=== PATIENT | male | born 1955 | race African-American/Black ===

== ENCOUNTER 2016-07-05 17:47 | Inpatient (IN) | payer MEDICAID ==
[~2016-07-05] VITALS: Ht 157.5 cm; Wt 55.3 kg
[2016-07-05 18:47] LABS: HEMATOCRIT 38.1 % (42.0-54.0); HEMOGLOBIN 12.8 g/dL (13.5-17.5); MCH 31.8 pg (26.0-34.0); MCHC 33.6 g/dL (31.0-37.0); MCV 94.5 fL (80.0-100.0); MEAN PLATELET VOLUME 9.6 fL (7.4-10.4); PLATELET COUNT 272 10x3/uL (130-400); RBC 4.03 10x6/uL (4.20-6.10); WBC 28.3 10x3/uL (4.8-10.8)
[2016-07-05 18:48] LABS: APPEARANCE CLEAR (CLEAR); BILIRUBIN NEGATIVE (NEGATIVE); COLOR YELLOW (YELLOW); GLUCOSE NEGATIVE (NEGATIVE); KETONE NEGATIVE (NEGATIVE); LEUKOCYTE ESTERASE 2+ (NEGATIVE); NITRITE NEGATIVE (NEGATIVE); PROTEIN TRACE mg/dL (NEGATIVE); SPECIFIC GRAVITY 1.015 (1.005-1.020); UROBILINOGEN NORMAL (NORMAL)
[2016-07-05 18:51] LABS: WHITE CELLS - URINE >50 /hpf (0-5)
[2016-07-05 18:54] LABS: BACTERIA MODERATE /hpf (NONE SEEN); RED CELLS - URINE OCC /hpf (0-5)
[2016-07-05 18:56] LABS: EOSINOPHILS 4 % (0-7); LYMPHOCYTES 9 % (15-50); MONOCYTES 2 % (2-11); NEUTROPHILS 85 % (40-80); PLATELET ESTIMATE NORMAL
[2016-07-05 19:04] LABS: BILIRUBIN - TOTAL 0.16 mg/dL (0.2-1.3); CARBON DIOXIDE 25.1 mmol/L (21.0-32.0)
[2016-07-05 19:28] LABS: CREATININE - SERUM 1.5 mg/dL (0.6-1.3)
[2016-07-05 19:29] LABS: ANION GAP 15.8 mmol/L (8-16); POTASSIUM - SERUM 4.9 mmol/L (3.5-5.1)
[2016-07-05 19:49] LABS: ALBUMIN 3.4 g/dL (3.4-5.0); CALCIUM 8.8 mg/dL (8.5-10.1); PROTEIN - SERUM 7.8 g/dL (6.4-8.2)
[2016-07-05 20:09] LABS: CREATINE KINASE 107 UL (21-232); PHENYTOIN (DILANTIN) 15.4 ug/mL (10.0-20.0); PRO BNP 416 pg/mL (0-125); VALPROIC ACID (DEPAKOTE) 101.4 ug/mL (50.0-100.0)
[2016-07-05 20:19] LABS: TROPONIN-I < 0.017 ng/mL (0.000-0.060)
--- NOTE | 2016-07-05 21:54 | NUR ---
RECEIVED PATIENT FROM THE ER WITH FAMILY AT BEDSIDE AND NO VISIBLE SIGNS OF DISTRESS. BED IN LOWEST POSITION, CALL LIGHT WITHIN REACH, AND BED ALARM ON.
[2016-07-05] MEDS ORDERED: DILANTIN100 MG PO (21:55)
[2016-07-05] MEDS ORDERED: DEPAKOTE500 MG PO (22:41)
[2016-07-05] MEDS ORDERED: DIOVAN160 MG PO (22:42)
[2016-07-05] MEDS ORDERED: ZOCOR20 MG PO (22:43)
[2016-07-06 02:29] VITALS: BP 100/58; Ht 157.5 cm; Wt 55.3 kg
[2016-07-06 04:00] VITALS: BP 132/77
[2016-07-06 09:01] VITALS: BP 121/66
[2016-07-06 11:42] LABS: BASOPHILS 0 % (0-2); EOSINOPHILS 0 % (0-7); HEMATOCRIT 32.6 % (42.0-54.0); HEMOGLOBIN 10.9 g/dL (13.5-17.5); IMMATURE GRANULOCYTES 0.6 % (0-5); LYMPHOCYTES 6.1 % (15-50); MCH 31.2 pg (26.0-34.0); MCHC 33.4 g/dL (31.0-37.0); MCV 93.4 fL (80.0-100.0); MEAN PLATELET VOLUME 9.4 fL (7.4-10.4); MONOCYTES 11.9 % (2-11); NEUTROPHILS 81.4 % (40-80); PLATELET COUNT 224 10x3/uL (130-400); RBC 3.49 10x6/uL (4.20-6.10); RDW 14.3 % (11.5-14.5); WBC 32.3 10x3/uL (4.8-10.8)
[2016-07-06 12:00] VITALS: BP 116/65
[2016-07-06 12:04] LABS: ANION GAP 14.2 mmol/L (8-16); BILIRUBIN - TOTAL 0.4 mg/dL (0.2-1.3); CALCIUM 8.6 mg/dL (8.5-10.1); CARBON DIOXIDE 24.2 mmol/L (21.0-32.0); CREATININE - SERUM 1.2 mg/dL (0.6-1.3); POTASSIUM - SERUM 4.4 mmol/L (3.5-5.1)
[2016-07-06 12:06] LABS: ALBUMIN 2.3 g/dL (3.4-5.0)
[2016-07-06 17:56] VITALS: BP 120/70
[2016-07-06 19:00] VITALS: BP 137/75
--- NOTE | 2016-07-06 19:07 | NUR ---
FAMILY/FRIEND IN ROOM, STATED PATIENT JUST HAD A SEIZURE, SHE STATED "IT WAS A PRETTY BAD ONE. HE TRIED TO GET OUT OF THE BED BUT I KEPT HIM IN THE BED AND SAFE." PATIENT IS WAKING UP, RESPONDING TO QUESTIONS WITH "HUH" AND "UH HUH". TOLD PATIENT'S FAMILY/FRIEND THAT I WILL CHECK BACK AND WHEN HE IS AWAKE ENOUGH ADMINISTER HIS SEIZURE MEDS.
--- NOTE | 2016-07-06 19:38 | NUR ---
PATIENT IS AWAKE AND ALERT. ANSWERING QUESTIONS WITH WORDS (WNL FOR PATIENT). ADMINISTERED SEIZURE MEDS. BED IN LOWEST POSITION, CALL LIGHT IN REACH. BED RAILS UP X'S 2. BED ALARM ON. BED RAILS PADDED.
[2016-07-07 04:00] VITALS: BP 146/79
[2016-07-07 06:35] LABS: BASOPHILS 0 % (0-2); EOSINOPHILS 0.2 % (0-7); HEMATOCRIT 34.5 % (42.0-54.0); HEMOGLOBIN 11.6 g/dL (13.5-17.5); IMMATURE GRANULOCYTES 0.3 % (0-5); LYMPHOCYTES 6.4 % (15-50); MCH 31.4 pg (26.0-34.0); MCHC 33.6 g/dL (31.0-37.0); MCV 93.5 fL (80.0-100.0); MEAN PLATELET VOLUME 10.3 fL (7.4-10.4); MONOCYTES 9.6 % (2-11); NEUTROPHILS 83.5 % (40-80); PLATELET COUNT 203 10x3/uL (130-400); RBC 3.69 10x6/uL (4.20-6.10); RDW 14.2 % (11.5-14.5); WBC 20.6 10x3/uL (4.8-10.8)
--- NOTE | 2016-07-07 06:42 | NUR ---
RESTING QUIETLY RESPIRATIONS WITH EASE AND UNLABORED.
[2016-07-07 06:49] LABS: ALBUMIN 2.3 g/dL (3.4-5.0); ANION GAP 14.8 mmol/L (8-16); BILIRUBIN - TOTAL 0.19 mg/dL (0.2-1.3); CALCIUM 8.5 mg/dL (8.5-10.1); CARBON DIOXIDE 23.7 mmol/L (21.0-32.0); CREATININE - SERUM 1.1 mg/dL (0.6-1.3); POTASSIUM - SERUM 4.5 mmol/L (3.5-5.1); PROTEIN - SERUM 6.1 g/dL (6.4-8.2)
[2016-07-07 08:44] VITALS: BP 132/76; BP 139/64
[2016-07-07 12:57] VITALS: BP 106/69
--- NOTE | 2016-07-07 16:06 | NUR ---
Patient Name: YOLY REEDER Admission Status: ER Accout number: [id number] Admission Date: 07-05-2016 : 1955 Admission Diagnosis:FEVER, UNSPECIFIED Attending: AMANDA Current LOS: 2 Anticipated DC Date: 07-11-2016 Planned Disposition: Home Primary Insurance: MEDICAID [place] Discharge Planning Comments: CM MET WITH PATIENT AND BROTHER (MACY) REGARDING D/C NEEDS AND PLANS. BROTHER STATED PATIENT LIVES WITH HIM AND HE WILL DRIVE HIM HOME AT DISCHARGE. PATIENT GOES TO FIRST STEP. PATIENT HAS A WHEELCHAIR, WALKER, SHOWER CHAIR, AND BS COMMODE AT HOME. PATIENTS PCP IS DR. DORMAN AND USES [facility]. PATIENTS BROTHER HELPS WITH MEDICATION MANAGEMENT. BROTHER STATED HOME HEALTH IS NOT NEEDED AND HAS NO OTHER NEEDS FOR DISCHARGE. CM WILL CONTINUE TO FOLLOW PATIENT WITH D/C NEEDS AND PLANS. PCP DR. DORMAN [facility]- [phone] MACY ARGUETA) [phone] Gate Shear Operator: Lisa Cotter Is the patient Alert and Oriented? Yes 0 * How many steps to enter\exit or inside your home? 0 0 * PCP DR. DORMAN 0 * Pharmacy [facility] 0 * Preadmission Environment Home with Family 0 * ADLs Independent 0 * Equipment Bedside Commode Shower Chair Walker Wheelchair 0 * List name and contact numbers for known caregivers / representatives who currently or will assist patient after discharge: MACY ARGUETA) [phone] 0 * Community resources currently utilized None 0 * Additional services required to return to the preadmission environment? Yes 0 * Can the patient safely return to the preadmission environment? Yes 0 * Has this patient been hospitalized within the prior 30 days at any hospital? No 0 Grand Total: 0
[2016-07-07 17:00] VITALS: BP 110/53
[2016-07-07 20:00] VITALS: BP 115/38; BP 167/83
[2016-07-08] VITALS (7 sets, daily range): BP systolic 116–154; BP diastolic 56–77
--- NOTE | 2016-07-08 | NUR ---
1944)REC'D IN BED FAMILY AT BEDSIDE.STATES FEELS MUCH BETTER TODAY SMILING. WILL CONTINUE TO MONITOR FOR ANY CHGES. AND FOLLOW CURRENT PLAN OF CARE
--- NOTE | 2016-07-08 04:00 | NUR ---
PATIENT SLEEPING WITH NO DISTRESS NOTED. AGREE WITH TIER LIFT TRUCK OPERATOR ASSESSMENT.
[2016-07-08 06:20] LABS: BASOPHILS 0.1 % (0-2); EOSINOPHILS 0.6 % (0-7); HEMOGLOBIN 10.9 g/dL (13.5-17.5); IMMATURE GRANULOCYTES 0.2 % (0-5); MCH 30.7 pg (26.0-34.0); MCHC 34.1 g/dL (31.0-37.0); MCV 90.1 fL (80.0-100.0); MEAN PLATELET VOLUME 10.7 fL (7.4-10.4); MONOCYTES 14.8 % (2-11); NEUTROPHILS 75.3 % (40-80); PLATELET COUNT 187 10x3/uL (130-400); RBC 3.55 10x6/uL (4.20-6.10); RDW 14.2 % (11.5-14.5); WBC 11.6 10x3/uL (4.8-10.8)
[2016-07-08 06:23] LABS: ALBUMIN 2.2 g/dL (3.4-5.0); ALKALINE PHOSPHATASE 111 U/L (46-116); BILIRUBIN - TOTAL 0.19 mg/dL (0.2-1.3); CALC OSMOLALITY 280 mosm/kg (275-300); CARBON DIOXIDE 22.8 mmol/L (21.0-32.0); CHLORIDE - SERUM 107 mmol/L (98-107); GLUCOSE 109 mg/dL (74-106); PROTEIN - SERUM 5.9 g/dL (6.4-8.2); SODIUM 140 mmol/L (136-145); UREA NITROGEN 16 mg/dL (7-18); eGFR NON AFRICAN AMERICAN 80 mL/min (90-120)
[2016-07-08 06:26] LABS: ALT (SGPT) 48 U/L (10-68)
--- NOTE | 2016-07-08 07:45 | NUR ---
FAMILY AT BEDSIDE, DENIES NEEDS, CALL LIGHT IN REACH, ASSESSMENT COMPLETE, BED LOWEST POSITION, WILL CONTINUE TO MOMINOR
--- NOTE | 2016-07-08 12:30 | NUR ---
PT CONFUSED AT TIMES. PT HERE FOR UROSEPSIS FOR THIS VISIT. IV TO RIGHT HAND PATENT AND INTACT. PT DENIES NEEDS AT THIS TIME. SRX2 BED AT LOWEST SETTING CALL LIGHT WITHIN REACH WILL CONTINUE TO MONITOR
--- NOTE | 2016-07-09 02:16 | NUR ---
REC'D PATIENT LYING IN BED. NO DISTRESS NOTED. DENIED PAIN AT THIS TIME. INSTRUCTED TO CALL IF NEEDED ANYTHING. CAREGIVER AT BEDSIDE. BED LOW, LOCKED CALL LIGHT IN REACH.
--- NOTE | 2016-07-09 03:37 | NUR ---
PATIENT RESTING IN BED AND DENIES NEEDS AT THIS TIME. NO VISIBLE SIGNS OF DISTRESS. BED IN LOWEST POSITION AND CALL LIGHT WITHIN REACH. ENCOURAGED THE PATIENT TO CALL IF HE HAS NEEDS.
[2016-07-09 03:55] VITALS: BP 143/72
[2016-07-09 07:22] LABS: BASOPHILS 0.2 % (0-2); EOSINOPHILS 1.4 % (0-7); HEMATOCRIT 31.7 % (42.0-54.0); HEMOGLOBIN 10.7 g/dL (13.5-17.5); IMMATURE GRANULOCYTES 0.4 % (0-5); LYMPHOCYTES 14.6 % (15-50); MCH 30.6 pg (26.0-34.0); MCHC 33.8 g/dL (31.0-37.0); MCV 90.6 fL (80.0-100.0); MEAN PLATELET VOLUME 9.6 fL (7.4-10.4); MONOCYTES 21.2 % (2-11); NEUTROPHILS 62.2 % (40-80); PLATELET COUNT 215 10x3/uL (130-400); RDW 14.3 % (11.5-14.5); WBC 11.1 10x3/uL (4.8-10.8)
--- NOTE | 2016-07-09 07:50 | NUR ---
PATIENT ALERT IN BED. NO SIGNS OF DISTRESS NOTED. FAMILY AT BEDSIDE. SIDE RAILS UP X2. BED IN LOW POSITION. CALL LIGHT IN REACH.
[2016-07-09 07:56] LABS: ALBUMIN 2.1 g/dL (3.4-5.0); BILIRUBIN - TOTAL 0.16 mg/dL (0.2-1.3); CALCIUM 8.4 mg/dL (8.5-10.1); CARBON DIOXIDE 25.8 mmol/L (21.0-32.0); CREATININE - SERUM 1.1 mg/dL (0.6-1.3); POTASSIUM - SERUM 3.8 mmol/L (3.5-5.1); PROTEIN - SERUM 6.5 g/dL (6.4-8.2)
--- NOTE | 2016-07-09 08:25 | NUR ---
SITTING UP IN BED, DENIES NEEDS, STARIGHT CATH THIS AM TO EMPTY BLADDER PER DR AREVALO ORDER, BED LOWEST POSITION, CALL LIGHT IN REACH, WILL CONTINUE TO MONITOR
[2016-07-09 08:53] VITALS: BP 124/62
[2016-07-09 11:04] VITALS: BP 123/64
--- NOTE | 2016-07-09 17:00 | NUR ---
CALLED DR WALTERS ABOUT C&S, INFORMED HIM PT IS ONLY R TO [facility]IN, DR WALTERS STATED HE'D CHANGE
--- NOTE | 2016-07-09 19:40 | NUR ---
ASSISTED PT FROM CHAIR BACK TO BED X 2 ASSIST, ANNABELLA WELL, ASSESSMENT COMPLETED, NO DISTRESS NOTED, SCD'S PLACE, BED ALARM ON, BED LOW, SR'S UP X2, CL IN REACH, DENIES NEEDS, WILL MONITOR
[2016-07-09 20:00] VITALS: BP 138/73
--- NOTE | 2016-07-09 21:01 | NUR ---
MEDS GIVEN PER MAR, ANNABELLA WELL, DENIES NEEDS, FALL PRECAUTIONS IN PLACE, CL IN REACH
--- NOTE | 2016-07-09 23:18 | NUR ---
RESTING WITH EYES CLOSED, RESP WITH EASE, NO DISTRESS NOTED, SR'S UP ,CL IN REACH, WILL CONTINUE TO MONITOR
[2016-07-10] VITALS: BP 130/70
--- NOTE | 2016-07-10 01:10 | NUR ---
RESTING WITH EYES CLOSED, RESP WITH EASE, NO DISTRESS NOTED, SR'S UP, ALARM ON, CL IN REACH
[2016-07-10 04:00] VITALS: BP 128/68
[2016-07-10 06:07] LABS: BASOPHILS 0.2 % (0-2); EOSINOPHILS 1.5 % (0-7); HEMATOCRIT 29.6 % (42.0-54.0); IMMATURE GRANULOCYTES 0.5 % (0-5); LYMPHOCYTES 17.4 % (15-50); MCH 30.5 pg (26.0-34.0); MCHC 33.8 g/dL (31.0-37.0); MCV 90.2 fL (80.0-100.0); MEAN PLATELET VOLUME 9.6 fL (7.4-10.4); MONOCYTES 19.8 % (2-11); NEUTROPHILS 60.6 % (40-80); PLATELET COUNT 220 10x3/uL (130-400); RBC 3.28 10x6/uL (4.20-6.10); RDW 14.3 % (11.5-14.5); WBC 12.9 10x3/uL (4.8-10.8)
[2016-07-10 06:26] LABS: ANION GAP 12.2 mmol/L (8-16); BILIRUBIN - TOTAL 0.13 mg/dL (0.2-1.3); CALCIUM 8.1 mg/dL (8.5-10.1); CARBON DIOXIDE 24.6 mmol/L (21.0-32.0); CREATININE - SERUM 1.1 mg/dL (0.6-1.3); POTASSIUM - SERUM 3.8 mmol/L (3.5-5.1); PROTEIN - SERUM 6.3 g/dL (6.4-8.2)
[2016-07-10 09:21] VITALS: BP 125/56
[2016-07-10 12:12] VITALS: BP 138/54
[2016-07-10 16:44] VITALS: BP 132/58
--- NOTE | 2016-07-10 17:59 | NUR ---
DENIES NEEDS, WANTS UP TO CHAIR, BEDLOWEST POSITION , CALL LIGHT IN REACH, WILL CONTINUE TO MONITOR
[2016-07-10 19:00] VITALS: BP 151/67
--- NOTE | 2016-07-10 19:25 | NUR ---
PT SITTING UP IN CHAIR, ASSESSMENT COMPLETED, NO DISTRESS NOTED, DENIES PAIN OR NEEDS, CG AT SIDE, CL IN REACH, WILL MONITOR
--- NOTE | 2016-07-10 20:29 | NUR ---
IV INFILTRATED, DC'D WITH CATH INTACT 20G IV RESITED IN L WRIST X 1 ATTEMPT, MEDS GIVEN PER MAR, ANNABELLA WELL, DENIES FURTHER NEEDS, CG AT BEDSIDE, SR'S UP X2, ALARM ON, CL IN REACH
--- NOTE | 2016-07-10 23:19 | NUR ---
RESTING WITH EYES CLOSED, RESP WITH EASE, SR'S UP, ALARM ON, CL IN REACH
[2016-07-11 04:00] VITALS: BP 140/70
--- NOTE | 2016-07-11 05:20 | NUR ---
MEDS GIVEN PER MAR, ANNABELLA WELL, DENIES NEEDS, REFUSES SCD'S AT THIS TIME, SR'S UP, ALARM ON, CL IN REACH
[2016-07-11 06:10] LABS: BASOPHILS 0.9 % (0-2); EOSINOPHILS 2.5 % (0-7); HEMATOCRIT 29.8 % (42.0-54.0); HEMOGLOBIN 10.2 g/dL (13.5-17.5); IMMATURE GRANULOCYTES 0.8 % (0-5); LYMPHOCYTES 18.9 % (15-50); MCH 31.5 pg (26.0-34.0); MCHC 34.2 g/dL (31.0-37.0); MEAN PLATELET VOLUME 10.4 fL (7.4-10.4); MONOCYTES 19.9 % (2-11); PLATELET COUNT 207 10x3/uL (130-400); RBC 3.24 10x6/uL (4.20-6.10); RDW 14.7 % (11.5-14.5); WBC 10.6 10x3/uL (4.8-10.8)
[2016-07-11 06:40] LABS: ALBUMIN 1.9 g/dL (3.4-5.0); ANION GAP 11.4 mmol/L (8-16); BILIRUBIN - TOTAL 0.11 mg/dL (0.2-1.3); CALCIUM 8.4 mg/dL (8.5-10.1); CARBON DIOXIDE 24.9 mmol/L (21.0-32.0); CREATININE - SERUM 1.1 mg/dL (0.6-1.3); POTASSIUM - SERUM 4.3 mmol/L (3.5-5.1); PROTEIN - SERUM 6.3 g/dL (6.4-8.2)
[2016-07-11 07:59] VITALS: BP 129/62
--- NOTE | 2016-07-11 08:59 | NUR ---
PT ASSESSMENT COMPLETE AWAKE AND ALERT ORINETED X 3 WITH SLOW MENTATION NOTED BROTHER AT BEDSIDE. CALL LIGHT IN REACH SIDE RAILS UP X 2 BED ALARM INTACT AND FUNCTIONING.
--- NOTE | 2016-07-11 09:30 | NUR ---
PATIENT SITTING UP IN CHAIR AT BEDSIDE. NO SIGNS OF DISTRESS NOTED. CALL LIGHT IN REACH.
--- NOTE | 2016-07-11 11:30 | NUR ---
PT AMBULATED 500 FT WITH THERAPY AND ROLLING WALKER TOLERATED WELL.
[2016-07-11 11:46] VITALS: BP 123/63
[2016-07-11] MEDS ORDERED: FLOMAX0.4 MG PO (12:22)
[2016-07-11] MEDS ORDERED: PROSCAR5 MG PO (12:23)
[2016-07-11] MEDS ORDERED: DEPAKENE250 MG PO (12:23)
[2016-07-11] MEDS ORDERED: PROTONIX40 MG PO (12:23)
[2016-07-11] MEDS ORDERED: FLORAJEN3 CAPS460 MG PO (12:23)
[2016-07-11] MEDS ORDERED: OMNICEF300 MG PO (12:25)
[2016-07-11] MEDS ORDERED: DOXYCYCLINE HY100 M2 PO (12:27)
--- NOTE | 2016-07-11 15:09 | NUR ---
07/11/2016 15:07 DCP: Discharge Planning Patient Name: YOLY REEDER Encounter No: [id number] : 1955 Primary Insurance: MEDICAID [facility] DC Date: 07-11-2016 Planned Disposition: Home DCP follow-up note: DC order rec'd. Brother requesting Rx for outpatient physical therapy - written by Dr. Graham. Brother will schedule appt. at [place] @ [facility]. Patient and family in agreement with discharge plan. No changes to plan. Case management will follow and assist as needed. Enma Melton
--- NOTE | 2016-07-11 17:13 | NUR ---
PT DISCHARGED TO HOME PER ORDER PIV DISCHARGED INTACT PT D/C WITH BROTHER VIA WHEELCHAIR IN PRIVATE VEHICLE
== END 2016-07-11 17:16 | disposition home or self-care (01) | DRG 872 ==
LOC: D.ER 17:47 → D.MS 19:23
PROVIDERS: Emergency Medicine; Family Medicine; ADMIT Emergency Medicine
DX: A41.9 Sepsis, unspecified organism (principal); N17.9 Acute kidney failure, unspecified; I10 Essential (primary) hypertension; G40.909 Epilepsy, unspecified, not intractable, without status epilepticus

== ENCOUNTER 2019-09-27 17:33 | Inpatient (IN) | payer MEDICARE, MEDICAID ==
[~2019-09-27] VITALS: Ht 162.6 cm; Wt 58.5 kg
[~2019-09-27 17:33] MED LIST: DEPAKENE250 MG PO; DEPAKOTE500 MG PO; DILANTIN100 MG PO; DIOVAN160 MG PO; DOXYCYCLINE HY100 M2 PO; FLOMAX0.4 MG PO; FLORAJEN3 CAPS460 MG PO; OMNICEF300 MG PO; PROSCAR5 MG PO; PROTONIX40 MG PO; ZOCOR20 MG PO
[2019-09-27 18:05] LABS: BASOPHILS 0.1 % (0-2); EOSINOPHILS 1.2 % (0-7); HEMATOCRIT 39.7 % (42.0-54.0); HEMOGLOBIN 13.3 g/dL (13.5-17.5); IMMATURE GRANULOCYTES 0.1 % (0-5); LYMPHOCYTES 28.5 % (15-50); MCH 30.9 pg (26.0-34.0); MCHC 33.5 g/dL (31.0-37.0); MCV 92.3 fL (80.0-100.0); MEAN PLATELET VOLUME 10.4 fL (7.4-10.4); MONOCYTES 13.6 % (2-11); NEUTROPHILS 56.5 % (40-80); PLATELET COUNT 200 10x3/uL (130-400); RDW 13.8 % (11.5-14.5); WBC 6.7 10x3/uL (4.8-10.8)
[2019-09-27 18:20] LABS: CALCIUM 9.8 mg/dL (8.5-10.1); CREATININE - SERUM 1.2 mg/dL (0.6-1.3)
[2019-09-27 18:26] LABS: ALBUMIN 3.4 g/dL (3.4-5.0); BILIRUBIN - TOTAL 0.06 mg/dL (0.2-1.3); PHENYTOIN (DILANTIN) 16.9 ug/mL (10.0-20.0); PROTEIN - SERUM 7.4 g/dL (6.4-8.2); VALPROIC ACID (DEPAKOTE) 64.2 ug/mL (50.0-100.0)
--- NOTE | 2019-09-27 19:18 | NUR ---
PT TO RADIOLOGY VIA STRETCHER AT THIS TIME.
--- NOTE | 2019-09-27 19:33 | NUR ---
PT RETURNED FROM RADIOLOGY AT THIS TIME.
[2019-09-27 20:38] LABS: BILIRUBIN NEGATIVE (NEGATIVE); GLUCOSE NEGATIVE (NEGATIVE); KETONE NEGATIVE (NEGATIVE); NITRITE NEGATIVE (NEGATIVE); UROBILINOGEN NORMAL (NORMAL)
--- NOTE | 2019-09-27 23:00 | NUR ---
PT ARRIVED TO THE FLOOR. ALERT SOME WHAT SLOW IN UNDERSTANDING WHAT IS GOING ON. NO SIGNS OF DISTRESS. BREATHING EVEN AND UNLABORED. IV SITE RT AC DRESSING CLEAN DRY AND INTACT. NO SIGNS OF INFECTION OR INFULTRATION. LUNG SOUNDS CLEAR. BOWEL SOUNDS ACTIVE. SKIN CLEAN DRY AND INTACT. NO LOWER LEG SWELLING PRESENT. WILL CONTINUE PLAN OF CARE. SEIZURE PRECAUTIONS IN PLACE.
[2019-09-27 23:39] VITALS: BP 162/81; BMI 22.2
[2019-09-28 04:00] VITALS: BP 142/76
[2019-09-28 04:59] LABS: BASOPHILS 0.1 % (0-2); HEMATOCRIT 37.8 % (42.0-54.0); HEMOGLOBIN 12.9 g/dL (13.5-17.5); IMMATURE GRANULOCYTES 0.1 % (0-5); LYMPHOCYTES 39.8 % (15-50); MCH 31.2 pg (26.0-34.0); MCHC 34.1 g/dL (31.0-37.0); MCV 91.3 fL (80.0-100.0); MEAN PLATELET VOLUME 10.1 fL (7.4-10.4); MONOCYTES 13.5 % (2-11); NEUTROPHILS 44.5 % (40-80); PLATELET COUNT 186 10x3/uL (130-400); RBC 4.14 10x6/uL (4.20-6.10); RDW 13.6 % (11.5-14.5); WBC 7.7 10x3/uL (4.8-10.8)
[2019-09-28 05:26] LABS: ALBUMIN 3.1 g/dL (3.4-5.0); ALKALINE PHOSPHATASE 82 U/L (30-120); ALT (SGPT) 24 U/L (10-68); BILIRUBIN - TOTAL 0.13 mg/dL (0.2-1.3); CALC OSMOLALITY 280 mosm/kg (275-300); CALCIUM 8.9 mg/dL (8.5-10.1); CHLORIDE - SERUM 107 mmol/L (98-107); CKMB 3.1 U/L (0.0-3.6); CREATINE KINASE 190 UL (21-232); CREATININE - SERUM 0.9 mg/dL (0.6-1.3); GLUCOSE 98 mg/dL (74-106); MAGNESIUM - SERUM 1.7 mg/dL (1.8-2.4); PHOSPHOROUS 3.1 mg/dL (2.5-4.9); POTASSIUM - SERUM 5.2 mmol/L (3.5-5.1); PROTEIN - SERUM 6.6 g/dL (6.4-8.2); SODIUM 138 mmol/L (136-145); UREA NITROGEN 27 mg/dL (7-18); eGFR NON AFRICAN AMERICAN 90 mL/min (90-120)
--- NOTE | 2019-09-28 07:49 | NUR ---
DR MICHELLE VEGA FOR CONSULT, RETURNED PAGE. STATED TO KAEL Heath FOR ORDER IF HE WANTS TO ORDER MRI FOR STROKE
--- NOTE | 2019-09-28 07:51 | NUR ---
THOMAS Heath RETURNED PAGED AND STATED TO WAIT TILL DR DORMAN IS ON THE FLOOR TO ASK HER AFTER SHE ELVALUATES PATIENT
[2019-09-28 09:42] VITALS: BP 165/72
[2019-09-28 12:52] VITALS: BP 149/73
[2019-09-28 13:15] VITALS: Ht 162.6 cm; Wt 58.5 kg
[2019-09-28 17:15] VITALS: BP 130/73
--- NOTE | 2019-09-28 19:00 | NUR ---
BEDSIDE REPORT RECEIVED AND CARE OF PT ASSUMED. PT LYING IN HIGH MARTÍNEZ'S POSITION WATCHING TV. IV TO RIGHT AC PATEHT WITH NS INFUSING AT 30 ML/HR. WILL MONITOR FOR NEEDS.
[2019-09-28 20:00] VITALS: BP 134/64
--- NOTE | 2019-09-28 20:22 | NUR ---
HS MEDICATION GIVEN. WILL CONTINUE TO MONITOR FOR NEEDS.
[2019-09-29] VITALS: BP 128/65
[2019-09-29 04:00] VITALS: BP 131/68
--- NOTE | 2019-09-29 06:49 | NUR ---
PT BATHED AND ALL LINENS AND GOWN CHANGED.
[2019-09-29 09:07] VITALS: BP 136/83
[2019-09-29 09:37] LABS: BASOPHILS 0 % (0-2); EOSINOPHILS 1.7 % (0-7); HEMATOCRIT 39.7 % (42.0-54.0); HEMOGLOBIN 13.3 g/dL (13.5-17.5); LYMPHOCYTES 30.4 % (15-50); MCH 30.9 pg (26.0-34.0); MCHC 33.5 g/dL (31.0-37.0); MCV 92.3 fL (80.0-100.0); MEAN PLATELET VOLUME 10.3 fL (7.4-10.4); NEUTROPHILS 54.9 % (40-80); PLATELET COUNT 190 10x3/uL (130-400); RDW 13.9 % (11.5-14.5); WBC 5.8 10x3/uL (4.8-10.8)
[2019-09-29 09:51] LABS: CALC OSMOLALITY 280 mosm/kg (275-300); CALCIUM 8.8 mg/dL (8.5-10.1); CARBON DIOXIDE 27.6 mmol/L (21.0-32.0); CHLORIDE - SERUM 107 mmol/L (98-107); GLUCOSE 106 mg/dL (74-106); MAGNESIUM - SERUM 1.6 mg/dL (1.8-2.4); SODIUM 139 mmol/L (136-145); eGFR NON AFRICAN AMERICAN 79 mL/min (90-120)
[2019-09-29 09:54] LABS: UREA NITROGEN 20 mg/dL (7-18)
--- NOTE | 2019-09-29 11:05 | NUR ---
PT ASLEEP AT THIS TIME. BROTHER HERE TO VISIT. CL IN REACH. WCTM
--- NOTE | 2019-09-29 12:03 | NUR ---
REHAB PRESCREENING Rehab referral received and chart reviewed. This patient is a good candidate for Acute Inpatient Rehab. We will continue to follow this patient and plan to bring him when we have bed availability. Thank you for this referral! Keren Barlow, RESOURCE DEVELOPMENT MANAGER Rehab PD
[2019-09-29 13:48] VITALS: BP 109/52
[2019-09-29 17:03] VITALS: BP 137/73
--- NOTE | 2019-09-29 19:00 | NUR ---
BEDSIDE REPORT RECEIVED AND CARE OF PT ASSUMED. PT SITTING UP ON SIDE OF BED AT THIS TIME. NO IV IN PLACE. WILL MONITOR FOR NEEDS.
[2019-09-29 20:00] VITALS: BP 124/63
--- NOTE | 2019-09-29 20:24 | NUR ---
HS MEDICATIONS GIVEN. WILL CONTINUE TO MONITOR FOR NEEDS.
[2019-09-30] VITALS: BP 130/67
[2019-09-30 06:42] LABS: ANION GAP 6.5 mmol/L (8-16); CARBON DIOXIDE 26.1 mmol/L (21.0-32.0); CREATININE - SERUM 1.2 mg/dL (0.6-1.3); MAGNESIUM - SERUM 1.4 mg/dL (1.8-2.4); PHOSPHOROUS 1.6 mg/dL (2.5-4.9); POTASSIUM - SERUM 4.6 mmol/L (3.5-5.1)
[2019-09-30 06:51] LABS: BASOPHILS 0.2 % (0-2); EOSINOPHILS 2.3 % (0-7); HEMATOCRIT 36.5 % (42.0-54.0); HEMOGLOBIN 12.3 g/dL (13.5-17.5); IMMATURE GRANULOCYTES 0.2 % (0-5); LYMPHOCYTES 27.1 % (15-50); MCH 30.8 pg (26.0-34.0); MCHC 33.7 g/dL (31.0-37.0); MCV 91.5 fL (80.0-100.0); MEAN PLATELET VOLUME 12.2 fL (7.4-10.4); MONOCYTES 14.7 % (2-11); NEUTROPHILS 55.5 % (40-80); RBC 3.99 10x6/uL (4.20-6.10); RDW 13.9 % (11.5-14.5); WBC 6.6 10x3/uL (4.8-10.8)
[2019-09-30 06:52] LABS: PLATELET COUNT 151 10x3/uL (130-400)
[2019-09-30 08:41] VITALS: BP 115/61
[2019-09-30 12:27] VITALS: BP 118/60
--- NOTE | 2019-09-30 14:35 | MORECARE ---
CASE MANAGEMENT DISCHARGE SUMMARY PATIENT: YOLY REEDER UNIT: [id number] ADM DATE: 09/27/19 AGE: 64 : 53 SEX: M ROOM/BED: D.2220 AUTHOR: LEV CORDOVA PHYSICIAN: REFERRING PHYSICIAN: VIVIANA KIRBY MD DATE OF SERVICE: 09/30/19 Discharge Plan Patient Name: YOLY REEDER [facility] [facility] 1955 Planned Disposition: Home or Self Care Anticipated Discharge Date: Discharge Date: Expected LOS: Initial Reviewer: [email or web address] Initial Review Date: 09/27/2019 Generated: 09/30/19 3:35 pm DCPIA - Discharge Planning Initial Assessment Updated by [id number]: Stefany Silva on 09/30/19 2:31 pm * Is the patient Alert and Oriented? Yes * PCP NARCISO * Pharmacy [facility] * Preadmission Environment Home with Family * ADLs Partial Dependent * Partial ADLs (Assistance needed) Ambulation Bathing Dressing Medication Management * Equipment Rolling Walker * List name and contact numbers for known caregivers / representatives who currently or will assist patient after discharge: LIVE ( BROTHER) [phone] * Verbal permission to speak to the caregivers and representatives has been obtained from the patient. Yes * Community resources currently utilized Advantage Program * Please name any agencies selected above. [facility] 7 DAYS [facility] W[facility] TW[facility] A DAY * Can the patient safely return to the preadmission environment? Yes * Has this patient been hospitalized within the prior 30 days at any hospital? No Patient Name: YOLY REEDER Page [phone] at 1435 All edits/amendments must be made on the electronic document DICTATION DATE: 09/30/19 1435 INSPECTOR AGRICULTURAL COMMODITIES: DIANNA 09/30/19 1435 RPT#: [id number] DC DATE: STATUS: ADM IN [facility] [address] [place] [address] END OF REPORT
--- NOTE | 2019-09-30 14:43 | MORECARE ---
CASE MANAGEMENT DISCHARGE SUMMARY PATIENT: YOLY REEDER UNIT: [id number] ADM DATE: 09/27/19 AGE: 64 : 53 SEX: M ROOM/BED: D.2220 AUTHOR: ARTDOC PHYSICIAN: REFERRING PHYSICIAN: VIVIANA KIRBY MD DATE OF SERVICE: 09/30/19 Discharge Plan Patient Name: YOLY REEDER Facility: [facility]:[place] : 1955 Planned Disposition: Home or Self Care Anticipated Discharge Date: Discharge Date: Expected LOS: Initial Reviewer: [email or web address] Initial Review Date: 09/27/2019 Generated: 09/30/19 3:42 pm Comments DCP- Discharge Planning Updated by [email or web address]: Stefany Silva on 09/30/19 1:[address] CM MET WITH PATIENT IN HIS ROOM ABOUT DC PLANNING, HE STATED THAT HE LIVES WITH LIVE, HIS BROTHER WHERE HE IS HIS PRIMARY SECRETARY BOOK KEEPER. HE HAS A WALKER AT HOME THAT HE USES. HE IS IN THE FIRST STEP PROGRAM 5 DAYS A WEEK. HE HAS AN AIDE WHO COMES EVERY MORNING TO HELP GET HIM READY AND ON THE BUS AND THEN COMES BACK IN THE EVENING TO GET HIM READY FOR BED. I SPOKE WITH MACY AT LENGTH ABOUT IS DISCHARGE PLAN. LIVE STATED THAT HE HAD SPOKE TO DR MARTINEZ AND DR DORMAN ABOUT GETTING HIM INTO [facility]. I EXPLAINED TO HIM THAT DR GARCÍA IS THE MD THIS WEEK AND THAT PER DR NNAMDI ANTONIO THAT THIS IS HIS BASELINE AND COULD DC HOME. I ASKED HIM IF HE HAD SPOKEN WITH ANYONE WITH [facility]/FIRST STEP TO SEE IF THERE ARE ANY PROGRAMS OUT THERE THAT HE WOULD QUALIFY FOR. I ALSO ENCOURAGED HIM AND HIS TO GO TO THE CARE HOME CARE FACILITIES TO SEE WHICH ONES HE LIKED AND WHAT ONES HE THOUGHT WOULD FIT HIS BROTHER. HE WOULD LIKE TO SPEAK FACE TO FACE WITH ME AND THE MD. I HAVE LET NNAMDI KNOW IMM WAS SERVED AND EXPLAINED TO THE PATIENT AND THE PATIENT SIGNED IT. WILL GO OVER IT WITH HIS BROTHER WHEN HE ARRIVES DCPIA - Discharge Planning Initial Assessment Updated by [id number]: Stefany Silva on 09/30/19 2:40 pm * Is the patient Alert and Oriented? Yes * PCP DANDY * Pharmacy [facility] * Preadmission Environment Home with Family * ADLs Partial Dependent * Partial ADLs (Assistance needed) Ambulation Bathing Dressing Medication Management * Equipment Rolling Walker * List name and contact numbers for known caregivers / representatives who currently or will assist patient after discharge: LIVE ( BROTHER) [phone] * Verbal permission to speak to the caregivers and representatives has been obtained from the patient. Yes * Community resources currently utilized Advantage Program * Please name any agencies selected above. [facility] 7 DAYS A WEEK TWICE A DAY * Can the patient safely return to the preadmission environment? Yes * Has this patient been hospitalized within the prior 30 days at any hospital? No Coverage Notice Reviewer: [email or web address] Ronni Silva Notice Issued Date-Time: 09/30/2019 14:00 Notice Type: IM Discharge Notice Notice Delivered To: Patient Relationship to Patient: Supervisor Carbon Electrodes Name: Delivery Method: HAND - Hand Delivered Zulma Days: Prior Verbal Notification: Yes Recipient Understood Notice: Recipient Signature: Yes Med Rec Note Co-signed by Attending: Coverage Notice Comment: Last DP export: 09/30/19 1:35 pm Patient Name: YOLY REEDER Page [phone] at 1443 All edits/amendments must be made on the electronic document DICTATION DATE: 09/30/191441 NEUROPSYCHOLOGY DIRECTOR: DIANNA 09/30/191441 RPT#: [id number] DC DATE: STATUS: ADM IN [facility] [address] [place] [address] END OF REPORT
[2019-09-30 16:38] VITALS: BP 100/52
--- NOTE | 2019-09-30 19:00 | NUR ---
BEDSIDE REPORT RECEIVED AND CARE OF PT ASSUMED. PT LYING IN LOW MARTÍNEZ'S POSITION WATCHING TV. NO IV SITED. NO NEEDS VOICED AT THIS TIME. WILL MONITOR FOR NEEDS.
--- NOTE | 2019-09-30 19:30 | NUR ---
GAVE HS SNACK: X2 ICE CREAMS AND SODA.
--- NOTE | 2019-09-30 19:43 | NUR ---
HS MEDICATIONS GIVEN. WILL CONTINUE TO MONITOR FOR NEEDS.
[2019-09-30 20:00] VITALS: BP 140/72
[2019-10-01] VITALS: BP 140/72
[2019-10-01 04:00] VITALS: BP 142/76
[2019-10-01 06:33] LABS: BASOPHILS 0.2 % (0-2); EOSINOPHILS 2.2 % (0-7); HEMATOCRIT 36.8 % (42.0-54.0); HEMOGLOBIN 12.1 g/dL (13.5-17.5); IMMATURE GRANULOCYTES 0.2 % (0-5); LYMPHOCYTES 35.5 % (15-50); MCH 30.3 pg (26.0-34.0); MCHC 32.9 g/dL (31.0-37.0); MEAN PLATELET VOLUME 10.4 fL (7.4-10.4); MONOCYTES 15.3 % (2-11); NEUTROPHILS 46.6 % (40-80); RDW 14.1 % (11.5-14.5); WBC 6.3 10x3/uL (4.8-10.8)
[2019-10-01 06:34] LABS: PLATELET COUNT 182 10x3/uL (130-400)
[2019-10-01 06:47] LABS: ANION GAP 8.9 mmol/L (8-16); CALCIUM 8.3 mg/dL (8.5-10.1); CREATININE - SERUM 1.2 mg/dL (0.6-1.3); POTASSIUM - SERUM 4.9 mmol/L (3.5-5.1)
[2019-10-01 06:48] LABS: MAGNESIUM - SERUM 1.8 mg/dL (1.8-2.4); PHOSPHOROUS 2.5 mg/dL (2.5-4.9)
[2019-10-01 09:07] VITALS: BP 139/88
--- NOTE | 2019-10-01 10:51 | MORECARE ---
CASE MANAGEMENT DISCHARGE SUMMARY PATIENT: YOLY REEDER UNIT: [id number] ADM DATE: 09/27/19 AGE: 64 : 53 SEX: M ROOM/BED: D.2220 AUTHOR: LEV CORDOVA PHYSICIAN: REFERRING PHYSICIAN: VIVIANA KIRBY MD DATE OF SERVICE: 10/01/19 Discharge Plan Patient Name: YOLY REEDER Facility: [facility]:[place] : 1955 Planned Disposition: Home or Self Care Anticipated Discharge Date: Discharge Date: Expected LOS: Initial Reviewer: [id number] Initial Review Date: 09/27/2019 Generated: 10/01/19 11:51 am Comments DCP- Discharge Planning Updated by [id number]: Stefany Silva on 09/30/19 1:[address] CM MET WITH PATIENT IN HIS ROOM ABOUT DC PLANNING, HE STATED THAT HE LIVES WITH LIVE, HIS BROTHER WHERE HE IS HIS PRIMARY IMPLEMENTATION ADVISOR. HE HAS A WALKER AT HOME THAT HE USES. HE IS IN THE FIRST STEP PROGRAM 5 DAYS A WEEK. HE HAS AN AIDE WHO COMES EVERY MORNING TO HELP GET HIM READY AND ON THE BUS AND THEN COMES BACK IN THE EVENING TO GET HIM READY FOR BED. I SPOKE WITH MACY AT LENGTH ABOUT IS DISCHARGE PLAN. LIVE STATED THAT HE HAD SPOKE TO DR MARTINEZ AND DR DORMAN ABOUT GETTING HIM INTO [facility]. I EXPLAINED TO HIM THAT DR GARCÍA IS THE MD THIS WEEK AND THAT PER DR NNAMDI ANTONIO THAT THIS IS HIS BASELINE AND COULD DC HOME. I ASKED HIM IF HE HAD SPOKEN WITH ANYONE WITH [facility]/FIRST STEP TO SEE IF THERE ARE ANY PROGRAMS OUT THERE THAT HE WOULD QUALIFY FOR. I ALSO ENCOURAGED HIM AND HIS TO GO TO THE HALF-WAY CARE FACILITIES TO SEE WHICH ONES HE LIKED AND WHAT ONES HE THOUGHT WOULD FIT HIS BROTHER. HE WOULD LIKE TO SPEAK FACE TO FACE WITH ME AND THE MD. I HAVE LET NNAMDI KNOW IMM WAS SERVED AND EXPLAINED TO THE PATIENT AND THE PATIENT SIGNED IT. WILL GO OVER IT WITH HIS BROTHER WHEN HE ARRIVES DCPIA - Discharge Planning Initial Assessment Updated by [id number]: Stefany Silva on 09/30/19 2:40 pm * Is the patient Alert and Oriented? Yes * PCP DANDY * Pharmacy [facility] * Preadmission Environment Home with Family * ADLs Partial Dependent * Partial ADLs (Assistance needed) Ambulation Bathing Dressing Medication Management * Equipment Rolling Walker * List name and contact numbers for known caregivers / representatives who currently or will assist patient after discharge: LIVE ( BROTHER) [phone] * Verbal permission to speak to the caregivers and representatives has been obtained from the patient. Yes * Community resources currently utilized Advantage Program * Please name any agencies selected above. [facility] 7 DAYS A WEEK TWICE A DAY * Can the patient safely return to the preadmission environment? Yes * Has this patient been hospitalized within the prior 30 days at any hospital? No External Providers External Provider: [facility] Next Contact Date: Service Request Date: Service Type: Resolution: Reviewer: Comments: Coverage Notice Reviewer: [email or web address] Ronni Silva Notice Issued Date-Time: 09/30/2019 14:00 Notice Type: IM Discharge Notice Notice Delivered To: Patient Relationship to Patient: Cellar Supervisor Name: Delivery Method: HAND - Hand Delivered Zulma Days: Prior Verbal Notification: Yes Recipient Understood Notice: Recipient Signature: Yes Med Rec Note Co-signed by Attending: Coverage Notice Comment: Last DP export: 09/30/19 1:43 pm Patient Name: YOLY REEDER Page [phone] at 1051 All edits/amendments must be made on the electronic document DICTATION DATE: 10/01/19 1051 SUPERVISOR FRUIT GRADING: DIANNA 10/01/19 1051 RPT#: [id number] DC DATE: STATUS: ADM IN [facility] [address] [place] [address] END OF REPORT
--- NOTE | 2019-10-01 11:54 | MORECARE ---
CASE MANAGEMENT DISCHARGE SUMMARY PATIENT: YOLY REEDER UNIT: [id number] ADM DATE: 09/27/19 AGE: 64 : 53 SEX: M ROOM/BED: D.2220 AUTHOR: LEV CORDOVA PHYSICIAN: REFERRING PHYSICIAN: VIVIANA KIRBY MD DATE OF SERVICE: 10/01/19 Discharge Plan Patient Name: YOLY REEDER Facility: [facility]:[place] : 1955 Planned Disposition: Home or Self Care Anticipated Discharge Date: Discharge Date: Expected LOS: Initial Reviewer: [email or web address] Initial Review Date: 09/27/2019 Generated: 10/01/19 12:54 pm Comments DCP- Discharge Planning Updated by [email or web address]: Stefany Silva on 09/30/19 1:[address] CM MET WITH PATIENT IN HIS ROOM ABOUT DC PLANNING, HE STATED THAT HE LIVES WITH LIVE, HIS BROTHER WHERE HE IS HIS PRIMARY GALLEY BOY. HE HAS A WALKER AT HOME THAT HE USES. HE IS IN THE FIRST STEP PROGRAM 5 DAYS A WEEK. HE HAS AN AIDE WHO COMES EVERY MORNING TO HELP GET HIM READY AND ON THE BUS AND THEN COMES BACK IN THE EVENING TO GET HIM READY FOR BED. I SPOKE WITH MACY AT LENGTH ABOUT IS DISCHARGE PLAN. LIVE STATED THAT HE HAD SPOKE TO DR MARTINEZ AND DR DORMAN ABOUT GETTING HIM INTO [facility]. I EXPLAINED TO HIM THAT DR GARCÍA IS THE MD THIS WEEK AND THAT PER DR NNAMDI ANTONIO THAT THIS IS HIS BASELINE AND COULD DC HOME. I ASKED HIM IF HE HAD SPOKEN WITH ANYONE WITH [facility] TO SEE IF THERE ARE ANY PROGRAMS OUT THERE THAT HE WOULD QUALIFY FOR. I ALSO ENCOURAGED HIM AND HIS TO GO TO THE [facility] CARE FACILITIES TO SEE WHICH ONES HE LIKED AND WHAT ONES HE THOUGHT WOULD FIT HIS BROTHER. HE WOULD LIKE TO SPEAK FACE TO FACE WITH ME AND THE MD. I HAVE LET NNAMDI KNOW IMM WAS SERVED AND EXPLAINED TO THE PATIENT AND THE PATIENT SIGNED IT. WILL GO OVER IT WITH HIS BROTHER WHEN HE ARRIVES DCPIA - Discharge Planning Initial Assessment Updated by [email or web address]: Stefany Silva on 09/30/19 2:40 pm * Is the patient Alert and Oriented? Yes * PCP DANDY * Pharmacy [facility] * Preadmission Environment Home with Family * ADLs Partial Dependent * Partial ADLs (Assistance needed) Ambulation Bathing Dressing Medication Management * Equipment Rolling Walker * List name and contact numbers for known caregivers / representatives who currently or will assist patient after discharge: LIVE ( BROTHER) [phone] * Verbal permission to speak to the caregivers and representatives has been obtained from the patient. Yes * Community resources currently utilized Advantage Program * Please name any agencies selected above. [facility] 7 DAYS A WEEK TWICE A DAY * Can the patient safely return to the preadmission environment? Yes * Has this patient been hospitalized within the prior 30 days at any hospital? No External Providers External Provider: JBJB Cowan Next Contact Date: Service Request Date: Service Type: Resolution: Reviewer: Comments: Coverage Notice Reviewer: [id number] Ronni Silva Notice Issued Date-Time: 09/30/2019 14:00 Notice Type: IM Discharge Notice Notice Delivered To: Patient Relationship to Patient: Accounting Manager Cpa Name: Delivery Method: HAND - Hand Delivered Zulma Days: Prior Verbal Notification: Yes Recipient Understood Notice: Recipient Signature: Yes Med Rec Note Co-signed by Attending: Coverage Notice Comment: Last DP export: 10/01/19 9:51 am Patient Name: YOLY REEDER Page 53370 at 1154 All edits/amendments must be made on the electronic document DICTATION DATE: 10/01/19 1154 TOW MOTOR DRIVER: DIANNA 10/01/19 1154 RPT#: [id number] DC DATE: STATUS: ADM IN [facility] [address] [place] [address] END OF REPORT
[2019-10-01 12:42] VITALS: BP 123/62
[2019-10-01 16:12] VITALS: BP 110/52
--- NOTE | 2019-10-01 17:53 | NUR ---
OT NOTE; PT COMPLETED SUPINE TO SIT WITH CGA. PT COMPLETED SIT TO STAND WITH CGA. PT LLE IS HYPEREXTENDED. PT COMPLETED ADL MOB WITH RW REQUIRED CGA. PT COMPLETED MURALI SHOES WITH MIN A. PT COMPLETED BUE AROM AXS WITH WALKER MANAGEMENT. [id number] THANK YOU,KYLER OLSEN
[2019-10-01 20:00] VITALS: BP 119/65
--- NOTE | 2019-10-01 22:57 | NUR ---
I have reviewed this patient and I concur with the Shift Assessment completed by the Licensed Practical Nurse today this shift.
[2019-10-02 03:59] VITALS: BP 112/56
[2019-10-02 05:05] LABS: BASOPHILS 0.2 % (0-2); EOSINOPHILS 2.1 % (0-7); HEMATOCRIT 37.2 % (42.0-54.0); HEMOGLOBIN 12.2 g/dL (13.5-17.5); IMMATURE GRANULOCYTES 0.2 % (0-5); MCH 30.1 pg (26.0-34.0); MCHC 32.8 g/dL (31.0-37.0); MCV 91.9 fL (80.0-100.0); MEAN PLATELET VOLUME 10.9 fL (7.4-10.4); MONOCYTES 13.1 % (2-11); NEUTROPHILS 42.4 % (40-80); PLATELET COUNT 149 10x3/uL (130-400); RBC 4.05 10x6/uL (4.20-6.10); RDW 14.2 % (11.5-14.5); WBC 6.6 10x3/uL (4.8-10.8)
[2019-10-02 05:23] LABS: ANION GAP 9.4 mmol/L (8-16); CALCIUM 8.1 mg/dL (8.5-10.1); CARBON DIOXIDE 25.9 mmol/L (21.0-32.0); CREATININE - SERUM 1.2 mg/dL (0.6-1.3); MAGNESIUM - SERUM 1.6 mg/dL (1.8-2.4); PHOSPHOROUS 2.8 mg/dL (2.5-4.9); POTASSIUM - SERUM 5.3 mmol/L (3.5-5.1)
[2019-10-02 09:10] VITALS: BP 135/59
--- NOTE | 2019-10-02 10:37 | MORECARE ---
CASE MANAGEMENT DISCHARGE SUMMARY PATIENT: YOLY REEDER UNIT: [id number] ADM DATE: 09/27/19 AGE: 64 : 51 SEX: M ROOM/BED: D.2220 AUTHOR: ART,DOC PHYSICIAN: REFERRING PHYSICIAN: VIVIANA KIRBY MD DATE OF SERVICE: 10/02/19 Discharge Plan Patient Name: YOLY REEDER Facility: [facility]:[place] : 1955 Planned Disposition: Home or Self Care Anticipated Discharge Date: Discharge Date: Expected LOS: Initial Reviewer: [id number] Initial Review Date: 09/27/2019 Generated: 10/02/19 11:37 am Comments DCP- Discharge Planning Updated by [id number]: Stefany Silva on 10/02/19 9:[address] PATIENT HAS BEEN ACCEPTED TO THE [facility] RETURNED THEY WILL PICK HIM UP AT 11:30. I HAVE CALLED HIS BROTHER AND LET HIM KNOW A IMM AND NINA WAS SIGNED BY HIS BROTHER ON 09/30/19 DCP- Discharge Planning Updated by [email or web address]: Stefany Silva on 09/30/19 1:[address] CM MET WITH PATIENT IN HIS ROOM ABOUT DC PLANNING, HE STATED THAT HE LIVES WITH LIVE, HIS BROTHER WHERE HE IS HIS PRIMARY PROGRAM FACILITATOR. HE HAS A WALKER AT HOME THAT HE USES. HE IS IN THE FIRST STEP PROGRAM 5 DAYS A WEEK. HE HAS AN AIDE WHO COMES EVERY MORNING TO HELP GET HIM READY AND ON THE BUS AND THEN COMES BACK IN THE EVENING TO GET HIM READY FOR BED. I SPOKE WITH MACY AT LENGTH ABOUT IS DISCHARGE PLAN. LIVE STATED THAT HE HAD SPOKE TO DR MARTINEZ AND DR DORMAN ABOUT GETTING HIM INTO [facility]. I EXPLAINED TO HIM THAT DR GARCÍA IS THE MD THIS WEEK AND THAT PER DR NNAMDI ANTONIO THAT THIS IS HIS BASELINE AND COULD DC HOME. I ASKED HIM IF HE HAD SPOKEN WITH ANYONE WITH [employer]/[facility] TO SEE IF THERE ARE ANY PROGRAMS OUT THERE THAT HE WOULD QUALIFY FOR. I ALSO ENCOURAGED HIM AND HIS TO GO TO THE [employer]OM[employer] TECHNICIAN CARE FACILITIES TO SEE WHICH ONES HE LIKED AND WHAT ONES HE THOUGHT WOULD FIT HIS BROTHER. HE WOULD LIKE TO SPEAK FACE TO FACE WITH ME AND THE MD. I HAVE LET NNAMDI KNOW IMM WAS SERVED AND EXPLAINED TO THE PATIENT AND THE PATIENT SIGNED IT. WILL GO OVER IT WITH HIS BROTHER WHEN HE ARRIVES DCPIA - Discharge Planning Initial Assessment Updated by [email or web address]: Stefany Silva on 09/30/19 2:40 pm * Is the patient Alert and Oriented? Yes * PCP DANDY * Pharmacy [place] * Preadmission Environment Home with Family * ADLs Partial Dependent * Partial ADLs (Assistance needed) Ambulation Bathing Dressing Medication Management * Equipment Rolling Walker * List name and contact numbers for known caregivers / representatives who currently or will assist patient after discharge: LIVE ( BROTHER) [phone] * Verbal permission to speak to the caregivers and representatives has been obtained from the patient. Yes * Community resources currently utilized [employer] Program * Please name any agencies selected above. [facility] 7 DAYS A WEEK TWICE A DAY * Can the patient safely return to the preadmission environment? Yes * Has this patient been hospitalized within the prior 30 days at any hospital? No Coverage Notice Reviewer: [id number] - Stefany Silva Notice Issued Date-Time: 09/30/2019 14:00 Notice Type: IM Discharge Notice Notice Delivered To: Patient Relationship to Patient: Storage Receipt Poster Name: Delivery Method: HAND - Hand Delivered Zulma Days: Prior Verbal Notification: Yes Recipient Understood Notice: Recipient Signature: Yes Med Rec Note Co-signed by Attending: Coverage Notice Comment: Last DP export: 10/01/19 10:54 am Patient Name: YOLY REDEER Page [id number] at 1037 All edits/amendments must be made on the electronic document DICTATION DATE: 10/02/19 1037 PRODUCT DIRECTOR: DIANNA 10/02/19 1037 RPT#: [id number] DC DATE: STATUS: ADM IN [facility] [address] [place] [address] END OF REPORT
--- NOTE | 2019-10-02 11:11 | NUR ---
CALLED REPORT TO [facility], TALKED WITH ALEXIS PAYTON, ALL QUESTIONS ANSWERED, GAVE CALL BACK NUMBER IF ANY FURTHER QUESTIONS ARISE, PT DRESSED AND READY FOR TRANSPORT
--- NOTE | 2019-10-02 11:17 | NUR ---
WENT OVER PT DISCHARGE INSTRUCTIONS WITH PT AND BROTHER, ALL QUESTIONS ANSWERED, ALL PERSONAL BELONGINGS RETURNED
--- NOTE | 2019-10-02 11:52 | NUR ---
TRANSPORT [facility] FROM [facility] HERE TO INFORMATION TECHNOLOGY PROGRAM MANAGER PT PER WHEELCHAIR, DISCHARGE PAPER WORK GIVEN TO TRANSPORT, NO OTHER NEEDS VOICED
--- NOTE | 2019-10-04 09:09 | MORECARE ---
CASE MANAGEMENT DISCHARGE SUMMARY PATIENT: YOLY REEDER UNIT: [id number] ADM DATE: 09/27/19 AGE: 64 : 53 SEX: M ROOM/BED: D.2220 AUTHOR: ART,DOC PHYSICIAN: REFERRING PHYSICIAN: VIVIANA KIRBY MD DATE OF SERVICE: 10/04/19 Discharge Plan Patient Name: YOLY REEDER Facility: [facility]:[place] : 1955 Planned Disposition: Home or Self Care Anticipated Discharge Date: Discharge Date: 10/02/2019 Expected LOS: Initial Reviewer: [id number] Initial Review Date: 09/27/2019 Generated: 10/04/19 10:08 am Comments DCP- Discharge Planning Updated by [email or web address]: Stefany Silva on 10/02/19 9:[address] PATIENT HAS BEEN ACCEPTED TO THE [facility] RETURNED THEY WILL PICK HIM UP AT 11:30. I HAVE CALLED HIS BROTHER AND LET HIM KNOW A IMM AND NINA WAS SIGNED BY HIS BROTHER ON 09/30/19 DCP- Discharge Planning Updated by [email or web address]: Stefany Silva on 09/30/19 1:[address] CM MET WITH PATIENT IN HIS ROOM ABOUT DC PLANNING, HE STATED THAT HE LIVES WITH LIVE, HIS BROTHER WHERE HE IS HIS PRIMARY SUEDE BRUSHER. HE HAS A WALKER AT HOME THAT HE USES. HE IS IN THE FIRST STEP PROGRAM 5 DAYS A WEEK. HE HAS AN AIDE WHO COMES EVERY MORNING TO HELP GET HIM READY AND ON THE BUS AND THEN COMES BACK IN THE EVENING TO GET HIM READY FOR BED. I SPOKE WITH MACY AT LENGTH ABOUT IS DISCHARGE PLAN. LIVE STATED THAT HE HAD SPOKE TO DR MARTINEZ AND DR DORMAN ABOUT GETTING HIM INTO [facility]. I EXPLAINED TO HIM THAT DR GARCÍA IS THE MD THIS WEEK AND THAT PER DR NNAMDI ANTONIO THAT THIS IS HIS BASELINE AND COULD DC HOME. I ASKED HIM IF HE HAD SPOKEN WITH ANYONE WITH [employer] [facility] TO SEE IF THERE ARE ANY PROGRAMS OUT THERE THAT HE WOULD QUALIFY FOR. I ALSO ENCOURAGED HIM AND HIS TO GO TO THE GROUP HOME CARE FACILITIES TO SEE WHICH ONES HE LIKED AND WHAT ONES HE THOUGHT WOULD FIT HIS BROTHER. HE WOULD LIKE TO SPEAK FACE TO FACE WITH ME AND THE MD. I HAVE LET NNAMDI KNOW IMM WAS SERVED AND EXPLAINED TO THE PATIENT AND THE PATIENT SIGNED IT. WILL GO OVER IT WITH HIS BROTHER WHEN HE ARRIVES DCPIA - Discharge Planning Initial Assessment Updated by [email or web address]: Stefany Silva on 09/30/19 2:40 pm * Is the patient Alert and Oriented? Yes * PCP DANDY * Pharmacy [place] * Preadmission Environment Home with Family * ADLs Partial Dependent * Partial ADLs (Assistance needed) Ambulation Bathing Dressing Medication Management * Equipment Rolling Walker * List name and contact numbers for known caregivers / representatives who currently or will assist patient after discharge: LIVE ( BROTHER) [phone] * Verbal permission to speak to the caregivers and representatives has been obtained from the patient. Yes * Community resources currently utilized [employer] Program * Please name any agencies selected above. [facility] 7 DAYS A WEEK TWICE A DAY * Can the patient safely return to the preadmission environment? Yes * Has this patient been hospitalized within the prior 30 days at any hospital? No Coverage Notice Reviewer: [id number] - Stefany Silva Notice Issued Date-Time: 09/30/2019 14:00 Notice Type: IM Discharge Notice Notice Delivered To: Patient Relationship to Patient: Boiler Blower Name: Delivery Method: HAND - Hand Delivered Zulma Days: Prior Verbal Notification: Yes Recipient Understood Notice: Recipient Signature: Yes Med Rec Note Co-signed by Attending: Coverage Notice Comment: Last DP export: 10/02/19 9:37 am Patient Name: YOLY REEDER Page [id number] at 0909 All edits/amendments must be made on the electronic document DICTATION DATE: 10/04/19907 TEST DEVELOPER: DM 10/04/19907 RPT#: [id number] DC DATE:10/02/19 STATUS: DIS IN [facility] [address] [place] [address] END OF REPORT
== END 2019-10-02 12:03 | DRG 948 ==
LOC: D.ER 17:33 → D.MS 20:59
PROVIDERS: Family Medicine; ADMIT Emergency Medicine; ATTEND Emergency Medicine
DX: R53.1 Weakness (principal); G40.909 Epilepsy, unspecified, not intractable, without status epilepticus; E86.0 Dehydration; G24.01 Drug induced subacute dyskinesia; I10 Essential (primary) hypertension; D64.9 Anemia, unspecified